=== PATIENT | male | born 1990 | race Caucasian/White ===

== ENCOUNTER 2018-02-11 00:50 | Emergency (ER) | payer SELFPAY ==
[~2018-02-11] VITALS: Ht 167.6 cm; Wt 96.3 kg
[2018-02-11 00:53] VITALS: BP 142/99
--- NOTE | 2018-02-11 01:00 | NUR ---
Pt presents to ED with dizziness and blurred vision. Pt arrived via EMS. Pt states no n/v. Pt states no pain. VSS. Positioned in chair for comfort. Pt is anctious. ER MD aware. Continue to monitor.
[2018-02-11] MEDS ORDERED: ONDANSETRON 4 MG/5 ML ORASYR PO ONE (01:25)
[2018-02-11 01:38] LABS: BARBITURATE, URINE NEG. ng/ml (NEG <=200); BENZODIAZEPINE, URINE NEG. ng/mL (NEG <=200); CANNABINOID, URINE POS. ng/mL (NEG <=50); COCAINE, URINE NEG. ng/mL (NEG <=300); OPIATE, URINE NEG. ng/mL (NEG <=2000); PHENCYCLIDINE SCREEN,URINE NEG. ng/mL (NEG <=25)
[2018-02-11 02:05] VITALS: BP 142/99
== END 2018-02-11 02:05 | disposition home or self-care (01) ==
LOC: MED 00:50
DX: R11.2 Nausea with vomiting, unspecified (principal); F12.929 Cannabis use, unspecified with intoxication, unspecified; F15.129 Other stimulant abuse with intoxication, unspecified; Z71.6 Tobacco abuse counseling
CPT/HCPCS: 80305; 81002; 99283; Q0162

== ENCOUNTER 2018-03-13 16:11 | Inpatient (IN) | payer SELFPAY ==
[~2018-03-13] VITALS: Ht 167.6 cm; Wt 76.8 kg
--- NOTE | 2018-03-13 16:11 | NUR ---
Patient BIBA ACLS, transferred to bed 5. RN evaluating patient at bedside.
[2018-03-13 16:15] VITALS: BP 110/76
--- NOTE | 2018-03-13 16:17 | NUR ---
Dr. Sanchez evaluating patient at bedside.
--- NOTE | 2018-03-13 16:30 | NUR ---
PATIENT BIB EMS FROM [facility]ELD FOR ALTERED LOC FROM ETOH AND MARIJUANA . PT ABLE TO OPEN EYES TO PAIN, SLURRED SPEECH, CONFUSED, DENIES N/V/D; SKIN IS PINK/WARM/DRY; LUNGS CLEAR BL; HR EVEN AND REGULAR; NO FEVER, CP, SOB, OR COUGH AT THIS TIME; DENIES PAIN; VSS; PATIENT POSITIONED FOR COMFORT; HOB ELEVATED; BEDRAILS UP X2; BED DOWN. ER MD MADE AWARE OF PT STATUS.
[2018-03-13 17:48] LABS: BASOPHILS % (AUTO) 0.2 % (0.0-2.0); EOSINOPHILS # (AUTO) 0.1 K/uL (0-0.4); EOSINOPHILS % (AUTO) 1.7 % (0.0-4.0); HEMATOCRIT 35.8 % (36-52); LYMPHOCYTES % (AUTO) 11.4 % (20.5-51.1); MEAN CORPUSCULAR HEMOGLOBIN 33 pg (27-31); MEAN CORPUSCULAR HGB CONC 34 g/dL (33-37); MEAN CORPUSCULAR VOLUME 98.8 fL (80-94); MONOCYTES # (AUTO) 0.5 K/uL (0.8-1.0); MONOCYTES % (AUTO) 5.4 % (1.7-9.3); NEUTROPHILS # (AUTO) 7.3 K/uL (1.8-7.7); NEUTROPHILS % (AUTO) 81.3 % (42.2-75.2); PLATELET COUNT (AUTO) 241 K/uL (140-450); RED BLOOD CELL COUNT(AUTO) 3.62 MIL/uL (4.20-6.10); RED CELL DISTRIBUTION WIDTH 14.8 % (11.6-13.7)
[2018-03-13 17:59] LABS: ANION GAP 10.9 (8-16); CHLORIDE 106 mmol/L (98-107); CREATININE 0.8 mg/dL (0.7-1.3); GFR ARICAN-AMERICAN 149 mL/min (>90); GLUCOSE 104 mg/dL (74-106); POTASSIUM 3.9 mmol/L (3.5-5.1); SODIUM SERUM 141 mmol/L (136-145); UREA NITROGEN, BLOOD 7 mg/dL (7-18)
[2018-03-13 18:00] LABS: APPEARANCE,URINE HAZY (CLEAR); BILIRUBIN,URINE NEGATIVE (NEGATIVE); BLOOD, URINE NEGATIVE (NEGATIVE); COLOR,URINE YELLOW (YELLOW); LEUKOCYTE ESTERASE ,URINE NEGATIVE (NEGATIVE); NITRITE, URINE NEGATIVE (NEGATIVE); PH,URINE 6.5 (5.0-9.0); UGLUCOSE NEGATIVE (NEGATIVE)
[2018-03-13 18:05] LABS: BARBITURATE, URINE NEG. ng/ml (NEG <=200); BENZODIAZEPINE, URINE NEG. ng/mL (NEG <=200); CANNABINOID, URINE POS. ng/mL (NEG <=50); COCAINE, URINE NEG. ng/mL (NEG <=300); OPIATE, URINE NEG. ng/mL (NEG <=2000); PHENCYCLIDINE SCREEN,URINE NEG. ng/mL (NEG <=25)
[2018-03-13 18:18] LABS: ALBUMIN 3.5 g/dL (3.4-5.0); ASPARTATE AMINOTRANSFERASE 16 U/L (15-37); TOTAL BILIRUBIN 0.2 mg/dL (0.0-1.0)
[2018-03-13] MEDS ORDERED: HYDROcodone/APAP 7.5/325 MG 1 TAB PO PRN (18:50)
[2018-03-13] MEDS ORDERED: DOCUSATE SODIUM 100 MG GELCAP PO PRN (18:50)
[2018-03-13] MEDS ORDERED: NACL 0.9% 1,000 ML IV SCH (18:50)
[2018-03-13] MEDS ORDERED: ONDANSETRON 4 MG/2 ML VIAL IM/IVP PRN (18:50)
[2018-03-13] MEDS ORDERED: ACETAMINOPHEN 325 MG TAB PO PRN (18:50)
[2018-03-13] MEDS ORDERED: MORPHINE SULFATE 4 MG/ML SYR IVP PRN (18:50)
--- NOTE | 2018-03-13 19:05 | NUR ---
Patient will be admitted to care of DR. LAI . Admited to TELE. Will go to room 111A. Belongings list completed. Report to ALZIA GUERRA AT BEDSIDE.
--- NOTE | 2018-03-13 19:10 | NUR ---
ADMITTED PATIENT TO THE TELE UNIT. PATIENT WAS SLEEPING, AROUSABLE, BUT LETHARGIC. WHEN ASKED HIM QUESTIONS, PATIENT FELL ASLEEP WITHOUT FINISHED SENTENCE. TELE MONITOR PLACED ON PATIENT, IV PATENT AND INTACT. PLAN OF CARE DISCUSSED, PATIENT VERBALIZED UNDERSTANDING, CALL LIGHT WITHIN REACH, SAFETY MEASURE ENSURED, WILL CONTINUE TO MONITOR.
[2018-03-13 19:29] LABS: SALICYLATE 5.8 mg/dL (2.8-20.0)
[2018-03-13 19:30] VITALS: BP 98/64
[2018-03-13 19:30] LABS: ACETAMINOPHEN < 0.5 ug/ml (10-30)
[2018-03-13 19:38] LABS: ANION GAP 9.4 (8-16); CARBON DIOXIDE 29.4 mmol/L (21-32); POTASSIUM 3.8 mmol/L (3.5-5.1)
[2018-03-13 19:39] LABS: CREATININE 0.8 mg/dL (0.7-1.3)
[2018-03-13 19:43] LABS: MAGNESIUM 2.2 mg/dL (1.8-2.4)
[2018-03-13 19:44] LABS: CHOL/HDL RATIO 3.1 (1-4.5); FREE T4 (FREE THYROXINE) 0.88 ng/dL (0.76-1.46); PHOSPHORUS 4.2 mg/dL (2.5-4.9); THYROID STIMULATING HORMONE 0.29 uIU/mL (0.34-3.74)
[2018-03-13 19:45] LABS: PROTHROMBIN TIME 9.5 secs (10.8-13.4)
[2018-03-13 19:52] LABS: ACETONE, SERUM NEGATIVE (NEGATIVE)
--- NOTE | 2018-03-13 22:35 | NUR ---
NO CHANGE IN CONDITION, STILL LETHARGIC, BUT AROUSABLE, NO S/S OF DISTRESS NOTED, RESPIRATION EVEN AND UNLABORED, ON ROOM AIR. CALL LIGHT WITHIN REACH, SAFETY MEASURE ENSURED, WILL CONTINUE TO MONITOR.
[2018-03-14] VITALS: BP 109/63
--- NOTE | 2018-03-14 00:24 | NUR ---
VITAL SIGNS STABLE, NO S/S OF DISTRESS NOTED, RESPIRATION EVEN AND UNLABORED, ON ROOM AIR. CALL LIGHT WITHIN REACH, SAFETY MEASURE ENSURED, WILL CONTINUE TO MONITOR.
[2018-03-14] MEDS ORDERED: LORazepam 1 MG TAB PO PRN (01:05)
--- NOTE | 2018-03-14 02:49 | NUR ---
NO CHANGE IN CONDITION, PATIENT IS SLEEPING, NO S/S OF DISTRESS NOTED, RESPIRATION EVEN AND UNLABORED, ROOM AIR. CALL LIGHT WITHIN REACH, SAFETY MEASURE ENSURED, WILL CONTINUE TO MONITOR.
[2018-03-14 04:00] VITALS: BP 116/73
--- NOTE | 2018-03-14 04:21 | NUR ---
VITAL SIGNS STABLE, PATIENT IS SLEEPING, NO S/S OF DISTRESS NOTED, RESPIRATION EVEN AND UNLABORED, ON ROOM AIR. CALL LIGHT WITHIN REACH, SAFETY MEASURE ENSURED, WILL CONTINUE TO MONITOR.
--- NOTE | 2018-03-14 07:15 | NUR ---
ENDORSED PLAN OF CARE TO DAY SHIFT, PATIENT RESTING IN BED, IN STABLE CONDITION.
--- NOTE | 2018-03-14 07:16 | NUR ---
Received report from boring machine feeder RN. Patient is sleeping at this time but arousable to name and shaking. No signs and symptoms of acute distress noted at this time. Has IV to the left AC 18G, infusing NS at 60 ml/hr. Infusing well, site is clean, dry, patent and intact. Patient has dry blister on the left 2nd toe, LEVEL VIAL MARKER. Bed in lowest position, side rails up x2, call light within reach. Will continue to monitor.
[2018-03-14 07:52] LABS: BASOPHILS % (AUTO) 0.4 % (0.0-2.0); EOSINOPHILS # (AUTO) 0.1 K/uL (0-0.4); EOSINOPHILS % (AUTO) 3.1 % (0.0-4.0); HEMATOCRIT 46.1 % (36-52); HEMOGLOBIN 15.1 g/dL (12.0-18.0); LYMPHOCYTES # (AUTO) 1.1 K/uL (2.0-11.5); LYMPHOCYTES % (AUTO) 25.5 % (20.5-51.1); MEAN CORPUSCULAR HEMOGLOBIN 30 pg (27-31); MEAN CORPUSCULAR HGB CONC 33 g/dL (33-37); MEAN CORPUSCULAR VOLUME 90.5 fL (80-94); MONOCYTES # (AUTO) 0.4 K/uL (0.8-1.0); MONOCYTES % (AUTO) 9.2 % (1.7-9.3); NEUTROPHILS # (AUTO) 2.8 K/uL (1.8-7.7); NEUTROPHILS % (AUTO) 61.8 % (42.2-75.2); PLATELET COUNT (AUTO) 177 K/uL (140-450); RED CELL DISTRIBUTION WIDTH 14.3 % (11.6-13.7); WHITE BLOOD COUNT (AUTO) 4.5 K/uL (4.8-10.8)
[2018-03-14 08:00] VITALS: BP 115/68
[2018-03-14] MEDS ORDERED: MULTIVITAMIN 1 TAB PO SCH (09:00)
[2018-03-14] MEDS ORDERED: THIAMINE 100 MG TAB PO SCH (09:00)
[2018-03-14] MEDS ORDERED: FOLIC ACID 1 MG TAB PO SCH (09:00)
--- NOTE | 2018-03-14 10:15 | NUR ---
PATIENT STATED THAT HE WANTED TO TAKE A SHOWER AND SIGN THE FORM TO LEAVE. WILL MAKE AWARE.
--- NOTE | 2018-03-14 10:30 | NUR ---
PATIENT SIGNED AMA FORM WITH DR CASTELLANOS. DR. BILLS EXPLAINED TO HIM THE RISKS THAT HE IS TAKING BY LEAVING AMA AND PATIENT VERBALIZED UNDERSTANDING. SIGNED FORM.
--- NOTE | 2018-03-14 10:55 | NUR ---
PATIENT SHOWERED AND I REMOVED HIS IV FROM SITE AT THIS TIME. NORMAL SALINE FLUIDS DISCONTINUED AT THIS TIME. CATHETER INTACT. NO SIGNS AND SYMPTOMS OF ACUTE DISTRESS NOTED. WILL SHOW PATIENT HOW TO GET OUT.
[2018-03-16 06:19] LABS: T4 (THYROXINE) 6.7 ug/dL (4.5-12.0)
== END 2018-03-14 10:55 | disposition left against medical advice (07) | DRG 917 ==
LOC: MED 16:11 → MTU 18:39
PROVIDERS: ADMIT Family Medicine; ATTEND Family Medicine
DX: T40.7X1A Poisoning by cannabis (derivatives), accidental (unintentional), initial encounter (principal); G92 Toxic encephalopathy; F19.10 Other psychoactive substance abuse, uncomplicated; D72.819 Decreased white blood cell count, unspecified; E78.5 Hyperlipidemia, unspecified; Z53.21 Procedure and treatment not carried out due to patient leaving prior to being seen by health care provider; E66.3 Overweight; Z68.27 Body mass index [BMI] 27.0-27.9, adult; Y92.89 Other specified places as the place of occurrence of the external cause
CPT/HCPCS: 36415; 70450; 71045; 80048; 80053; 80305; 81003; 82009; 82140; 82150; 82550; 83036; 83690; 83735; 83880; 83930; 84100; 84436; 84439; 84443; 84479; 85025; 85610; 85730; 87081; 93005; 93880; 99285; G0480; G0482; J7030; Q0092